=== PATIENT | female | born 1975 | race Caucasian/White ===

== ENCOUNTER 2020-03-16 16:15 | Emergency (ER) | payer OTHER ==
[~2020-03-16 16:15] MED LIST: BENTYL10 MG PO; ZOFRAN4 MG PO; ZOFRAN8 MG PO
[2020-03-16] MEDS ORDERED: BACTRIM DS TAB1 EACH PO (17:08)
== END 2020-03-16 17:29 | disposition home or self-care (01) ==
LOC: FER 16:15
DX: L03.314 Cellulitis of groin (principal); J45.909 Unspecified asthma, uncomplicated; F17.210 Nicotine dependence, cigarettes, uncomplicated; Z90.49 Acquired absence of other specified parts of digestive tract; Z98.890 Other specified postprocedural states; Z88.5 Allergy status to narcotic agent; Z88.6 Allergy status to analgesic agent; Z79.899 Other long term (current) drug therapy
CPT/HCPCS: 99283

== ENCOUNTER 2020-04-18 13:28 | Day surgery (SDCO) | payer OTHER ==
[~2020-04-18 13:28] MED LIST changes: +BACTRIM DS TAB1 EACH PO
[2020-04-18 14:41] LABS: BASOPHIL 1.1 % (0-2); EOSINOPHIL 5.5 % (0-5); HCT 43.6 % (37.0-47.0); HGB 14.8 g/dl (12.5-16.0); LYMPHOCYTE 33.5 % (15-48); MCH 30.5 pg (25.0-31.0); MCHC 33.9 g/dL (32.0-36.0); MCV 89.7 fL (78.0-100.0); MPV 9.5 fL (6.0-9.5); NEUTROPHIL 49.6 % (41-80); NRBC 0; PLT 221 K/uL (150-400); RBC 4.86 M/uL (4.20-5.40); RDW 12.3 % (11.5-14.0); WBC 7.3 K/uL (4.0-10.5)
[2020-04-18 15:26] LABS: BILIRUBIN NEGATIVE (NEGATIVE); BLOOD 2+ Ery/uL (NEGATIVE); CLARITY CLEAR (CLEAR); COLOR YELLOW (YELLOW); GLUCOSE (U) NORMAL (NORMAL); LEUKOCYTES NEGATIVE Leu/uL (NEGATIVE); NITRITE NEGATIVE (NEGATIVE); PROTEIN NEGATIVE (NEGATIVE); SPECIFIC GRAVITY 1.025 (1.001-1.030); UROBILINOGEN 0.2 mg/dL (0.2-1.0)
[2020-04-18 15:32] LABS: LACTIC ACID 0.4 mmol/L (0.4-1.9)
[2020-04-18 15:39] LABS: ALBUMIN 3.9 g/dL (3.4-5.0); BILIRUBIN - TOTAL 0.5 mg/dL (0.2-1.0); BUN/CREAT RATIO (CALC) 18.8 RATIO; CREATININE 0.8 mg/dL (0.51-0.95); GLOBULIN (CALCULATION) 3.5 g/dL; POTASSIUM 4.1 mmol/L (3.5-5.1); TOTAL PROTEIN 7.4 g/dL (6.4-8.2)
[2020-04-18 15:46] LABS: AMORPHOUS URATES CRYSTALS MODERATE; BACTERIA TRACE
[2020-04-18 16:04] LABS: CORONAVIRUS 2019 SARS-COV-2 NEGATIVE (NEGATIVE); INFLUENZA A NAA NEGATIVE (NEGATIVE)
[2020-04-19 06:25] LABS: BASOPHIL 0.3 % (0-2); EOSINOPHIL 0 % (0-5); HCT 40.6 % (37.0-47.0); HGB 13.4 g/dl (12.5-16.0); LYMPHOCYTE 4.6 % (15-48); MONOCYTE 1.9 % (0-12); MPV 9.4 fL (6.0-9.5); NEUTROPHIL 92.7 % (41-80); NRBC 0; PLT 186 K/uL (150-400); RBC 4.46 M/uL (4.20-5.40); RDW 12.2 % (11.5-14.0)
[2020-04-19 06:49] LABS: ALBUMIN 3.1 g/dL (3.4-5.0); BILIRUBIN - TOTAL 0.3 mg/dL (0.2-1.0); BUN/CREAT RATIO (CALC) 17.1 RATIO; CREATININE 0.82 mg/dL (0.51-0.95); GLOBULIN (CALCULATION) 3.3 g/dL; POTASSIUM 4.5 mmol/L (3.5-5.1); TOTAL PROTEIN 6.4 g/dL (6.4-8.2)
[2020-04-19 06:52] LABS: WBC 15.7 K/uL (4.0-10.5)
--- NOTE | 2020-04-19 10:37 | NUR ---
PT REPORTS SHE LIVES WITH BOYFRIEND; PT LEFT AMA
[2020-04-19] MEDS ORDERED: CLEOCIN300 MG PO (23:30)
== END 2020-04-19 10:00 | disposition left against medical advice (07) ==
LOC: FER 13:28 → FMS 20:30
PROVIDERS: Nurse Practitioner; Nurse Practitioner Family; ADMIT Internal Medicine
DX: R10.13 Epigastric pain (principal); T50.8X5A Adverse effect of diagnostic agents, initial encounter; D68.2 Hereditary deficiency of other clotting factors; K58.9 Irritable bowel syndrome, unspecified; I10 Essential (primary) hypertension; J45.909 Unspecified asthma, uncomplicated; K22.70 Barrett's esophagus without dysplasia; K31.84 Gastroparesis; F17.210 Nicotine dependence, cigarettes, uncomplicated; F32.9 Major depressive disorder, single episode, unspecified; F41.9 Anxiety disorder, unspecified; K44.9 Diaphragmatic hernia without obstruction or gangrene; Z53.21 Procedure and treatment not carried out due to patient leaving prior to being seen by health care provider; Z79.899 Other long term (current) drug therapy; Z88.5 Allergy status to narcotic agent; Z88.6 Allergy status to analgesic agent; Z91.013 Allergy to seafood; Z91.041 Radiographic dye allergy status; Z20.822 Contact with and (suspected) exposure to COVID-19
CPT/HCPCS: 36415; 80053; 81001; 82140; 82150; 83605; 83690; 85025; 87040; 87077; 87186; 93005; 94640; 96372; G0378; J0171; J1170; J1200; J2405; J2930; J7030; Q9967; U0002

== ENCOUNTER 2021-05-15 15:16 | Emergency (ER) | payer OTHER ==
[~2021-05-15 15:16] MED LIST changes: +CLEOCIN300 MG PO
[2021-05-15 16:30] LABS: EOSINOPHIL 3.4 % (0-5); HCT 45.7 % (37.0-47.0); HGB 15.3 g/dl (12.5-16.0); LYMPHOCYTE 32.9 % (15-48); MCH 30.2 pg (25.0-31.0); MCHC 33.5 g/dL (32.0-36.0); MCV 90.1 fL (78.0-100.0); MONOCYTE 9.7 % (0-12); MPV 9.7 fL (6.0-9.5); NEUTROPHIL 52.7 % (41-80); NRBC 0; PLT 194 K/uL (150-400); RBC 5.07 M/uL (4.20-5.40); RDW 12.4 % (11.5-14.0); WBC 5.9 K/uL (4.0-10.5)
[2021-05-15 16:31] LABS: BILIRUBIN NEGATIVE (NEGATIVE); BLOOD 2+ Ery/uL (NEGATIVE); CLARITY CLEAR (CLEAR); COLOR YELLOW (YELLOW); GLUCOSE (U) NORMAL (NORMAL); LEUKOCYTES NEGATIVE Leu/uL (NEGATIVE); NITRITE NEGATIVE (NEGATIVE); PROTEIN NEGATIVE (NEGATIVE); pH 6.5 (5.0-9.0)
[2021-05-15 16:38] LABS: BACTERIA 2+; URINARY RBC RARE
[2021-05-15 16:51] LABS: ALBUMIN 4.3 g/dL (3.4-5.0); BILIRUBIN - TOTAL 0.4 mg/dL (0.2-1.0); BUN/CREAT RATIO (CALC) 10.1 RATIO; CREATININE 0.89 mg/dL (0.51-0.95); GLOBULIN (CALCULATION) 3.7 g/dL; POTASSIUM 3.8 mmol/L (3.5-5.1)
[2021-05-15 17:22] LABS: CORONAVIRUS 2019 SARS-COV-2 NEGATIVE (NEGATIVE); INFLUENZA A NAA NEGATIVE (NEGATIVE)
[2021-05-15] MEDS ORDERED: ONDANSETRON HCL4 MG PO (18:56)
[2021-05-15] MEDS ORDERED: BACTRIM DS TAB1 EACH PO (18:56)
== END 2021-05-15 19:34 | disposition home or self-care (01) ==
LOC: FER 15:16
PROVIDERS: Nurse Practitioner Family
DX: N39.0 Urinary tract infection, site not specified (principal); R11.0 Nausea; R10.31 Right lower quadrant pain; J45.909 Unspecified asthma, uncomplicated; F17.210 Nicotine dependence, cigarettes, uncomplicated; Z20.822 Contact with and (suspected) exposure to COVID-19; Z88.6 Allergy status to analgesic agent; Z88.5 Allergy status to narcotic agent; Z91.041 Radiographic dye allergy status; Z79.899 Other long term (current) drug therapy
CPT/HCPCS: 36415; 80053; 81001; 82150; 83690; 85025; 87088; J2405; J7030; U0002